=== PATIENT | female | born 1965 | race Caucasian/White ===

== ENCOUNTER 2020-01-20 13:34 | Inpatient (IN) ==
--- NOTE | 2020-01-20 14:07 | PROVIDER DOCUMENTATION ---
HPI-General Adult - General Chief Complaint: Abdominal Pain Stated Complaint: FEVER, COUGH, ABD PAIN Time Seen by Provider: 01/20/20 13:47 Source: patient Allergies/Adverse Reactions: Patient Allergies Allergy/AdvReac Type Severity Reaction Status Date / Time ketorolac tromethamine * Allergy RASH Verified 01/20/20 15:16 [From Toradol] morphine Allergy RASH Verified 01/20/20 15:16 Home Medications: Home Medication List Medication Instructions Recorded Confirmed Last Taken Type Amlodipine [Norvasc] 5 mg PO DAILY 09/09/13 01/20/20 09/09/13 08:00 History Atenolol [Tenormin] 50 mg PO DAILY 09/09/13 01/20/20 09/09/13 08:00 History Ropinirole HCl [Requip] 3 mg PO HS 09/09/13 01/20/20 09/08/13 19:30 History Clonazepam [Klonopin] 1 mg PO BID 08/10/16 01/20/20 08/10/16 History Promethazine [Phenergan] 25 mg PO Q6H PRN PRN #20 tablet 08/11/16 01/20/20 Unknown Rx - History of Present Illness -Gen Adult Nature of Presenting Problems: Patient is a 54yo F who presents with complaints of fever, productive cough w/ blood tinged sputum, R sided chest pain with inspiration, intermittent epistaxis, abdominal pain/swelling, and nausea/vomiting. Reports over a month ago, she was seen by another provider and diagnosed with Pneumonia, and given Levaquin which she completed. Patient reports symptoms improved. States she has frequent hx of Pneumonia, and "knows that's what is going in." Patient also s tates she began experiencing abdominal pain/swelling/nausea/vomiting yesterday. 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 States last BM was this morning and was normal. Patient denies SOB, flu-like symptoms, or exposure to known/suspected COVID contacts. Non-toxic in appearance with no evidence of respiratory distress. O2 saturation 97% on RA. Location of Pain/Injury: reports: chest (lungs), abdomen Pain Radiation: reports: no radiation Quality of Pain: reports: pressure, throbbing Severity: reports: moderate Onset/Duration: reports: 24 hours ago, other (1 month ago - original onset of pneumonia per patient) Timing: reports: still present Context/Activities at Onset: reports: none Modifying Factors: improves with: nothing Associated Symptoms: reports: cough, fever/chills, nausea, swelling/mass in abdomen, vomiting. denies: chest pain, diarrhea, genitourinary problems, sinus congestion/drainage, shortness of breath Similar Symptoms Previously?: Yes Recently seen or treated by another doctor?: Yes (seen by another provider 1 month ago) Review of Systems - Adult - REVIEW OF SYSTEMS - ADULT Constitutional: reports: see HPI, chills, fever Eyes: reports: no symptoms reported Ears, Nose, Mouth & Throat: denies: sinus problem, throat pain Cardiovascular: denies: chest pain, palpitations Respiratory: reports: see HPI, cough, hemoptysis (patient reports she believes it is d/t her nose bleeding). denies: shortness of breath, wheezing Gastrointestinal: reports: see HPI, abdominal pain, nausea, vomiting, other (abdominal swelling). denies: diarrhea Genitourinary: denies: dysuria, flank pain Musculoskeletal: reports: no symptoms reported Integumentary: reports: no symptoms reported Neurological: reports: no symptoms reported Psychiatric: reports: no symptoms reported Endocrine: reports: no symptoms reported Past History - Adult - PAST MEDICAL HISTORY-ADULT Review of Records: reports: Nursing Assessment Review, Medications Reviewed Major Childhood Illnesses: reports: denies history Cardiovascular: reports: denies history Respiratory: reports: denies history Gastrointestinal: reports: other (SMA) Obstetrical/Gynecological: reports: denies history Genitourinary: reports: denies history Musculoskeletal: reports: denies history Neurological: reports: denies history Endocrine/Immune: reports: denies history Other Conditions: reports: denies history - PRIOR SURGERIES/PROCEDURES Surgical/Procedure History: reports: other (abdominal surgerty) - IMMUNIZATION STATUS Childhood Immunizations: See Nurse Assessment Flu Vaccine: See Nurse Assessment - FAMILY HISTORY Family History: reviewed, not pertinent Physical Exam-General - PHYSICAL EXAM-ADULT Initial Vital Signs Reviewed: Yes - CONSTITUTIONAL General Appearance: alert, mild distress. negative: lethargic, obtunded - EYES Eyes: PERRL/EOMI, pink conjunctivae. negative: EOM palsy, scleral icterus - HEAD, EARS, NOSE, MOUTH & THROAT HENMT: normocephalic/atraumatic. negative: moist mucous membranes (dry), angioedema - NECK Neck: non-tender, full range of motion, supple, normal inspection - RESPIRATORY Respiratory: chest non-tender, lungs clear, normal breath sounds, no respiratory distress, no accessory muscle use, pain on inspiration (R sided). negative: respiratory distress, accessory muscle use, rhonchi, stridor, wheezing, retractions, splinting - CARDIOVASCULAR Cardiovascular: regular rate, rhythm, no gallop - GASTROINTESTINAL (ABDOMEN) Abdominal Exam: normal bowel sounds, soft, distended, tenderness (diffusely tender to palpation). negative: guarding, rigid - MUSCULOSKELETAL Back Exam: normal inspection Extremity: normal range of motion, non-tender, normal gait, normal inspection - SKIN Integumentary: normal color, warm/dry. negative: cyanosis, jaundice, pallor - NEUROLOGIC Neurologic: grossly normal. negative: abnormal gait, aphasia, EOM palsy - PSYCHIATRIC Psych/Mental Status: normal mood/affect, normal thought content, normal thought process, oriented x 3 Progress - PLAN OF CARE/RESULTS Progress/Plan/Lab Results: Orders Category Date Time Status Saline Loc NOW Care 01/20/20 13:48 Active CHEST-PORTABLE [RAD] Stat Exams 01/20/20 13:48 Ordered AMYLASE [CHEM] Stat Lab 01/20/20 13:48 Uncollected CBC WITH ELECTRONIC DIFF [HEME] Stat Lab 01/20/20 13:48 Uncollected CK PROFILE [SP CHEM] Stat Lab 01/20/20 13:48 Uncollected COMPREHENSIVE METABOLIC PANEL [CHEM] Stat Lab 01/20/20 13:[address] Stat Lab 01/20/20 13:48 Uncollected LIPASE [CHEM] Stat Lab 01/20/20 13:48 Uncollected TROPONIN T HIGH SENSITIVITY Stat Lab 01/20/20 13:48 Uncollected URINALYSIS W/POSS RFLX CULT [URINALYSIS] Stat Lab 01/20/20 13:48 Uncollected 1524: Lab results, imaging results, plan of care, and need for admission discussed with patient who agrees with and verbalizes understanding. Result Diagrams: 01/20/20 14:15 01/20/20 14:15 - EKG 1 Time of EKG reading by physician:: 14:40 EKG Read and Signed by:: Melania Hernandez EKG Interpretation (*Must complete 3 of following elements*): Normal Rate: 84 Rhythm: NSR [place]: normal QRS: normal OR Interval: normal ST Wave: normal - XRAY 1 XRAY: Bilateral XRAY Study: Chest Impression: See EMR Report ([facility] - [address], [address], [place] [address] [facility] - [address] [place] [address] Road , [place] [address] Department of Imaging Patient: BLAYNE VAUGHAN ANNADM Date: 01/20/20MR#: [id number] : 1965ADM Status: REG [facility]#: [id number] Age/Sex: 54/FRoom/Bed: Loc: P.ED Ordering Physician: Usha Valdez Family Physician: None,PCP Reason for Procedure: Fever; cough Signed EXAM: CHEST-PORTABLE 01/20/2020 HISTORY: Fever; cough TECHNIQUE: AP portable at 1444 COMMENT: The inspiration is slightly less optimal than on 08/10/2016. There is some ill- defined opacity present throughout the right lower lobe and more coarse opacity is present in the mid left lung field and in the left costophrenic angle none of which was present at the time the previous study. IMPRESSION: Patchy bilateral pneumonia. Electronically signed by Daniel Dai 01/20/2020 3:03 PM 01/20/20 1503 Interpreting Physician: Daniel Dai MD Dictated Date/Time: 01/20/20 1502 cc: Usha Valdez; None,PCP) - CT/MRI 1 CT Study: Abdomen, Pelvis Impression: See EMR Report ([facility] - [address], [address], [place] [address] [place] [address] Department of Imaging Patient: BLAYNE VAUGHAN ANNADM Date: 01/20/20#: [id number] : 1965ADM Status: HOWARD [facility]#: [id number] Age/Sex: 54/FRoom/Bed: Loc: P.ED Ordering Physician: Usha Valdez Family Physician: None,PCP Reason for Procedure: Abd. pain; n/v; r/o obstruction Signed EXAM: CT ABD/PELVIS W/IV CONT ONLY HISTORY: Abd. pain; n/v; r/o obstruction TECHNIQUE: CT abdomen and pelvis with intravenous contrast, but without oral contrast. COMPARISON: 08/10/2016 FINDINGS: There are tiny nodular infiltrates in the lower lungs. No focal hepatic abnormality although there may be mild fatty infiltration. No calcified gallstones or adjacent inflammation. No splenomegaly. No inflammation about the pancreas. Normal adrenal glands and right kidney. Heterogeneous enhancement of the left kidney. No hydronephrosis. No aortic aneurysm. There are multiple sutures in the upper mid abdomen. The bowel loops are not dilated. Normal appendix. No abscess. The uterus has been removed. No pelvic mass. The scattered pelvic phleboliths. Urinary bladder is moderately distended and normal IMPRESSION: 1.Small nodular basilar infiltrates 2.Possible left pyelonephritis 3.Hysterectomy This exam was performed using automated exposure control, adjustment of mA or kV according to patient size, and/or use of iterative reconstruction technique. Electronically signed by Larry [place] 01/20/2020 3:16 PM 01/20/20 151 Interpreting Physician: Larry [place] MD Dictated Date/Time: 01/20/20 1511 cc: Usha Valdez; None,PCP) - CONSULTS/PCP/HOSPITALIST Notification #1 *Consult/PCP/Hospitalist*: Dr. Buffy, Hospitalist Time Discussed: 15:26 Reason/Comments: Bilateral PNA; hemoptysis; abdominal pain; n/v Consult Disposition: Will see in ED, Admit Departure - Departure Date of Disposition Decision: 01/20/20 Time of Disposition Decision: 15:24 DIAGNOSIS: Hemoptysis, unspecified, Pyelonephritis Bilateral pneumonia Qualifiers: Pneumonia type: due to unspecified organism Lung location: unspecified part of lung Qualified Code(s): J18.9 - Pneumonia, unspecified organism Abdominal pain Qualifiers: Abdominal location: generalized Qualified Code(s): R10.84 - Generalized abdominal pain Nausea and vomiting Qualifiers: Vomiting type: unspecified Vomiting Intractability: non-intractable Qualified Code(s): R11.2 - Nausea with vomiting, unspecified Disposition: ADMITTED INPATIENT 09 Certified Medical Emergency: Emergent Condition: Stable - Critical Care Note This patient required my direct & personal management of CC.: No Attestation - Physician/ MADDIE Attestation Patient care was provided by Advanced Practice Provider:: Yes Advanced Practice Provider:: Usha Valdez Advanced Practice Provider documentation review:: The Mid-level provider documentation, treatment plan and medical decision making was reviewed by the physician who agrees with all treatment and medical decision making by the P. The physician spent face to face time with patient:: No Advanced Practice Provider documentation review:: Supervising physician onsite and consulted in the evaluation and care of this patient. The physician did not have a face to face encounter with the patient.
[2020-01-20] MEDS ORDERED: ZOFRAN IV ONE (14:09)
[2020-01-20] MEDS ORDERED: NS 1,000 ML IV ONE (14:10)
[2020-01-20 14:29] LABS: BASO# 0.01 X1000 (0.0-0.2); BASO% 0.1 % (0.0-0.8); EOS# 0.14 X1000 (0.0-0.7); EOS% 1.4 % (0.0-10.0); HEMATOCRIT 37.4 % (37.0-47.0); HEMOGLOBIN 11.9 g/dL (12.0-16.0); IMM GRAN# 0.03 X1000 (0.0-0.04); IMM GRAN% 0.3 % (0.0-0.5); LYMPH# 1.62 X1000 (1.2-3.4); LYMPH% 16.1 % (20.5-51.1); MCH 29.8 PG (27-31); MCHC 31.8 g/dL (33-37); MCV 93.7 FL (81-99); MPV 11.4 FL (7.4-10.4); NEUT# 7.64 X1000 (1.4-6.5); NEUT% 76.1 % (42.2-75.2); PLT 151 X1000 (130-400); RBC 3.99 XMIL (4.2-5.4); RDW 15.1 % (11.5-14.5); WBC 10.04 X1000 (4.8-10.8)
[2020-01-20 14:45] LABS: AGAP 15; ALBUMIN 4.8 g/dL (3.5-5.0); ALKALINE PHOSPHATASE 77 U/L (32-104); AMYLASE 51 U/L (20-200); BUN 13 mg/dL (8-22); CALCIUM 10.1 mg/dL (8.8-10.2); CHLORIDE 100 mmol/L (98-107); CK PROFILE 67 U/L (24-173); COSMO 282; CREATININE 0.7 mg/dL (0.5-0.9); ESTIMATED GFR > 60; GLUCOSE 85 mg/dL (70-104); GOT 20 U/L (10-30); GPT 16 U/L (10-36); LIPASE 22 U/L (13-60); POTASSIUM 3.9 mmol/L (3.5-5.1); SODIUM 142 mmol/L (136-145); TCO2 27 mmol/L (25-35); TOTAL PROTEIN 7.8 g/dL (6.3-8.3)
[2020-01-20 14:48] LABS: INFLUENZA A NEGATIVE (NEGATIVE); INFLUENZA B NEGATIVE (NEGATIVE)
--- NOTE | 2020-01-20 15:06 | Diag Imaging Result Doc PS360 ---
EXAM: CHEST-PORTABLE 01/20/2020 HISTORY: Fever; cough TECHNIQUE: AP portable at 1444 COMMENT: The inspiration is slightly less optimal than on 08/10/2016. There is some ill-defined opacity present throughout the right lower lobe and more coarse opacity is present in the mid left lung field and in the left costophrenic angle none of which was present at the time the previous study. IMPRESSION: Patchy bilateral pneumonia. Electronically signed by Daniel Dai 01/20/2020 3:03 PM
--- NOTE | 2020-01-20 15:18 | Diag Imaging Result Doc PS360 ---
EXAM: CT ABD/PELVIS W/IV CONT ONLY HISTORY: Abd. pain; n/v; r/o obstruction TECHNIQUE: CT abdomen and pelvis with intravenous contrast, but without oral contrast. COMPARISON: 08/10/2016 FINDINGS: There are tiny nodular infiltrates in the lower lungs. No focal hepatic abnormality although there may be mild fatty infiltration. No calcified gallstones or adjacent inflammation. No splenomegaly. No inflammation about the pancreas. Normal adrenal glands and right kidney. Heterogeneous enhancement of the left kidney. No hydronephrosis. No aortic aneurysm. There are multiple sutures in the upper mid abdomen. The bowel loops are not dilated. Normal appendix. No abscess. The uterus has been removed. No pelvic mass. The scattered pelvic phleboliths. Urinary bladder is moderately distended and normal IMPRESSION: 1.Small nodular basilar infiltrates 2.Possible left pyelonephritis 3.Hysterectomy This exam was performed using automated exposure control, adjustment of mA or kV according to patient size, and/or use of iterative reconstruction technique. Electronically signed by Larry [place] 01/20/2020 3:16 PM
[2020-01-20] MEDS ORDERED: ROCEPHIN 1 GM in NS 50 ML IV ONE (15:22)
[2020-01-20] MEDS ORDERED: DILAUDID IV ONE (15:22)
[2020-01-20] MEDS ORDERED: ZOSYN 3.375 GM in NS 50 ML IV ONE (15:23)
--- NOTE | 2020-01-20 15:43 | EKG Report ---
Test Performed on : 01/20/2020 2:40:53 PM Test Reason : SOB Blood Pressure : / mmHG Vent. Rate : 084 BPM Atrial Rate : 084 BPM P-R Int : 148 ms QRS Dur : 070 ms QT Int : 368 ms P-R-T Axes : 069 000 045 degrees QTc Int : 434 ms Normal sinus rhythm. Normal ECG No previous ECGs available Unconfirmed Result
[2020-01-20] MEDS ORDERED: KLONOPIN PO PRN (17:08)
--- NOTE | 2020-01-20 18:55 | HISTORY AND PHYSICAL ---
CHIEF COMPLAINT: Fever. HISTORY OF PRESENT ILLNESS: Patient is a 54-year-old female who unfortunately is somewhat confused on exam. She initially presented to the hospital with fever and cough. Currently, she is telling me that she thinks she overdosed on medication and that is the reason she is in the hospital. Regardless, she has had low-grade fevers, productive cough with blood-tinged sputum. She has had some right-sided chest pain, has also complained of abdominal pain and nausea. States over a month ago she was seen and diagnosed with pneumonia and was given Levaquin. Stated that she finished the Levaquin but is not sure that she completely got over her symptoms. Denies any known exposure to COVID-19. ALLERGIES: Toradol causing a rash. Morphine causing rash. MEDICATIONS: Norvasc 5 mg, Tenormin 50 mg, Requip 3 at bedtime, Klonopin 1 mg b.i.d., [place] 7.5 q.6 h. P.r.n., and Phenergan as needed. REVIEW OF SYSTEMS: The patient notes that she has been having abdominal pain and nausea since yesterday. States that she has a history of superior was normal. Denies any muscle aches, sore throat, headaches, chills. Denies dysuria, frequency, urgency. Denies any blood in her stool. Is not typically on oxygen at home. Denies any current cardiac chest pain. Does have chest pain with deep inspiration. Notes that she had pneumonia approximately a month ago. Has been having symptoms off and on since then. PAST MEDICAL HISTORY: Significant for superior mesenteric artery syndrome, hypertension, chronic pain, chronic anxiety. SURGICAL HISTORY: She has had abdominal surgery. FAMILY HISTORY: Noncontributory. SOCIAL HISTORY: She does smoke. Denies illicit substances. PHYSICAL EXAMINATION: VITAL SIGNS: Reviewed. She is awake, alert. She is currently in no respiratory distress. She is lying on the bed with the head elevated at 30 degrees. She is afebrile. Blood pressure is stable. HEENT: Normocephalic. NECK: Supple. CARDIOVASCULAR: Regular rate. No appreciable murmurs. CHEST: Pain with inspiration on the right side. She is in no respiratory distress. Good air movement. No current wheezing. No crackles. No rhonchi. EXTREMITIES: Moves all extremities. ABDOMEN: Soft. Diffusely tender but minimally. NEUROLOGIC: No focal neurological changes. She moves all extremities well. She is somewhat confused on exam. LABORATORIES: CBC, CMP essentially normal. Chest x-ray demonstrates bilateral patchy infiltrates. CT of the abdomen and pelvis demonstrates small nodular basilar infiltrates, possible left pyelonephritis. ASSESSMENT: 1. Bilateral pneumonia. 2. Hemoptysis. 3. Pyelonephritis. 4. Fever. 5. Hypertension. PLAN: We are going to admit patient to the hospital. Antibiotics, fluids, oxygen if needed. We will use breathing treatments if needed and will follow. cc: Lio Baer MD MTDD
[2020-01-20] MEDS: NORCO-7.5 PO PRN (19:10)
[2020-01-20] MEDS: ROCEPHIN 1 GM in NS 50 ML IV SCH (19:12)
[2020-01-20] MEDS: REQUIP PO SCH (19:42)
[2020-01-20] MEDS: DOXYCYCLINE 100 MG in NS 250 ML IV SCH (21:50)
[2020-01-21 00:04] LABS: URINE SOURCE CLEAN CATCH
[2020-01-21 00:23] LABS: UR EPITHELIAL CELLS <10 /HPF (<10); URINE BACTERIA NEGATIVE /HPF; URINE RBC <10 /HPF (<10); URINE WBC <10 /HPF (<10)
[2020-01-21 01:00] LABS: BILIRUBIN URINE NEGATIVE (NEGATIVE); BLOOD URINE NEGATIVE (NEGATIVE); COLOR STRAW; GLUCOSE URINE NEGATIVE (NEGATIVE); KETONE URINE NEGATIVE (NEGATIVE); LEUKOCYTES URINE NEGATIVE (NEGATIVE); NITRITE URINE NEGATIVE (NEGATIVE); PH URINE 6.5; PROTEIN URINE NEGATIVE (NEGATIVE); SP GRAVITY URINE 1.025; TURBIDITY URINE CLEAR (CLEAR); UROBILINOGEN URINE NORMAL (NORMAL)
[2020-01-21] MEDS: REQUIP PO SCH ×2 (02:25→19:41)
[2020-01-21] MEDS: NORCO-7.5 PO PRN ×2 (02:35→08:48)
[2020-01-21 06:06] LABS: HEMOGLOBIN 9.7 g/dL (12.0-16.0); MCH 28.6 PG (27-31); MCHC 30.3 g/dL (33-37); MCV 94.4 FL (81-99); MPV 10.8 FL (7.4-10.4); RBC 3.39 XMIL (4.2-5.4); RDW 14.9 % (11.5-14.5); WBC 7.13 X1000 (4.8-10.8)
[2020-01-21 06:40] LABS: AGAP 11; ALBUMIN 3.4 g/dL (3.5-5.0); ALKALINE PHOSPHATASE 57 U/L (32-104); BUN 7 mg/dL (8-22); CALCIUM 9.3 mg/dL (8.8-10.2); CHLORIDE 106 mmol/L (98-107); COSMO 285; CREATININE 0.6 mg/dL (0.5-0.9); ESTIMATED GFR > 60; GLUCOSE 97 mg/dL (70-104); GOT 14 U/L (10-30); GPT 11 U/L (10-36); POTASSIUM 3.9 mmol/L (3.5-5.1); SODIUM 144 mmol/L (136-145); TCO2 27 mmol/L (25-35); TOTAL PROTEIN 6.5 g/dL (6.3-8.3)
[2020-01-21] MEDS: DOXYCYCLINE 100 MG in NS 250 ML IV SCH ×2 (08:50→09:31)
[2020-01-21] MEDS ORDERED: TENORMIN PO SCH (09:00)
[2020-01-21] MEDS ORDERED: NORVASC PO SCH (09:00)
[2020-01-21] MEDS: PERCOCET-10 PO SCH ×2 (13:21→19:42)
[2020-01-21] MEDS: NEURONTIN PO SCH ×2 (13:22→19:41)
[2020-01-21] MEDS: ROCEPHIN 1 GM in NS 50 ML IV SCH (18:11)
[2020-01-21 20:01] VITALS: BP 143/77
[2020-01-21] MEDS ORDERED: KLONOPIN PO SCH (21:00)
--- NOTE | 2020-01-21 21:01 | PROGRESS NOTE ---
DATE: 01/21/2020 SUBJECTIVE: Patient denies any current fevers. States overall she is improving. Denies any headaches. OBJECTIVE: Vital signs: Temperature 98 degrees, pulse 72, respiratory rate 18, BP 147/85. General: Patient is awake, pleasant, no distress. HEENT: Normocephalic. Neck: Supple. Cardiovascular: Regular rate. Chest: Much improved. No wheezing. Abdomen: Soft, nondistended. Extremities: Moves all extremities. ASSESSMENT: 1. Bilateral pneumonia. 2. Hemoptysis. 3. Pyelonephritis. 4. Fever. 5. Hypertension. PLAN: We will continue antibiotics. Continue to encourage oral intake. Hopefully, she will improve and can discharge home over the next 2 or 3 days. cc: Lio Baer MD
[2020-01-22] MEDS ORDERED: PAXIL PO SCH (09:00)
--- NOTE | 2020-01-23 04:37 | DISCHARGE SUMMARY ---
ADMISSION DATE: 01/20/2020 DISCHARGE DATE: 01/21/2020 DISCHARGE DIAGNOSES: 1. Bilateral pneumonia. 2. Hemoptysis. 3. Pyelonephritis. 4. Fever. 5. Hypertension. 6. Medical noncompliance, patient left against medical advice. CONSULTATIONS: None. PROCEDURES: None. BRIEF HOSPITAL COURSE: Patient is a 54-year-old female who presented to the ER as noted on the HPI, with fever, cough, congestion, subsequently diagnosed with pneumonia, placed on antibiotics. The patient appeared to be improving, although she declined to stay in the hospital any further, left against medical advice, stating that she would simply go to her primary care and have them treat her. cc: Lio Baer MD
== END 2020-01-21 20:32 | disposition left against medical advice (07) | DRG 194 ==
LOC: P.ED 13:34 → P.MEDSURG 17:57
PROVIDERS: ATTEND Family Medicine